=== PATIENT | male | born 1990 | race Caucasian/White ===

== ENCOUNTER 2020-07-17 06:48 | Emergency (ER) | payer BC ==
[~2020-07-17] VITALS: Ht 175.3 cm; Wt 97.5 kg
--- NOTE | 2020-07-17 06:48 | NUR ---
PT [facility]. TAKEN TO BED 7
[2020-07-17 06:50] VITALS: BP 137/86
--- NOTE | 2020-07-17 07:06 | NUR ---
Dr. Josue examining patient.
--- NOTE | 2020-07-17 07:13 | NUR ---
Report given to KAREY Oleary
--- NOTE | 2020-07-17 07:19 | NUR ---
ENDORSEMENT RECEIVED FROM KAREY MAYA AND KAREY GILMAN. CONTINUATION OF CARE AT THIS POINT.
[2020-07-17 07:27] LABS: BASOPHILS # (AUTO) 0.1 K/uL (0.00-0.22); BASOPHILS % (AUTO) 1.1 % (0.0-2.0); EOSINOPHILS % (AUTO) 0.4 % (0.0-4.0); HEMATOCRIT 41.3 % (36-52); HEMOGLOBIN 14.1 g/dL (12.0-18.0); LYMPHOCYTES # (AUTO) 1.5 K/uL (2.0-11.5); LYMPHOCYTES % (AUTO) 21.9 % (20.5-51.1); MEAN CORPUSCULAR HEMOGLOBIN 29 pg (27-31); MEAN CORPUSCULAR HGB CONC 34 g/dL (33-37); MONOCYTES # (AUTO) 0.3 K/uL (0.8-1.0); MONOCYTES % (AUTO) 3.9 % (1.7-9.3); NEUTROPHILS % (AUTO) 72.7 % (42.2-75.2); PLATELET COUNT (AUTO) 235 K/uL (140-450); RED CELL DISTRIBUTION WIDTH 12.5 % (11.6-13.7); WHITE BLOOD COUNT (AUTO) 6.8 K/uL (4.8-10.8)
--- NOTE | 2020-07-17 07:28 | NUR ---
PT AWAKE AND ALERT, BREATHING EVEN AND UNLABORED. STATES SOME CHEST PAIN, DENIES SOB; EKG HAS BEEN PERFORMED. WILL CONTINUE TO MONITPR.
--- NOTE | 2020-07-17 07:33 | NUR ---
PROVIDED UPDATE TO PT'S MOTHER REGARDING PT STATUS.
[2020-07-17 08:12] LABS: ALBUMIN 4.4 g/dL (3.4-5.0); ANION GAP 14.3 (8-16); CARBON DIOXIDE 23.7 mmol/L (21-32); CREATININE 1.1 mg/dL (0.6-1.3); TOTAL BILIRUBIN 0.7 mg/dL (0.0-1.0)
[2020-07-17 09:38] VITALS: BP 137/86
--- NOTE | 2020-07-17 09:40 | NUR ---
Patient discharged with v/s stable. Written and verbal after care instructions ABOUT WEAKNESS given and explained. Patient verbalized understanding. Ambulatory with steady gait. All questions addressed prior to discharge. Advised to follow up with PMD.
== END 2020-07-17 09:40 | disposition home or self-care (01) ==
LOC: MED 06:48
DX: R11.2 Nausea with vomiting, unspecified (principal); R07.9 Chest pain, unspecified; R53.1 Weakness; F12.10 Cannabis abuse, uncomplicated
CPT/HCPCS: 36415; 80053; 85025; 93005; 99284